=== PATIENT | female | born 1990 | race Caucasian/White ===

== ENCOUNTER 2020-11-24 13:29 | Emergency (ER) | payer OTHER ==
[2020-11-24 13:41] VITALS: BP 118/89; PULSE 98; TEMP 98.3
[2020-11-24] MEDS ORDERED: IBUPROFEN 400 MG TABLET (FP) PO ONE (13:53)
[2020-11-24] MEDS ORDERED: ACETAMINOPHEN 500 MG TABLET (FP) PO ONE (14:04)
[2020-11-24] MEDS ORDERED: ACETAMINOPHEN 500 MG TABLET (FP) ONE (14:13)
== END 2020-11-24 15:59 | disposition home or self-care (01) ==
LOC: JER 13:29
PROC: 2W3QX1Z Immobilization of Right Lower Leg using Splint (ICD-10-PCS; principal; 2020-11-24)
DX: S82.891A Other fracture of right lower leg, initial encounter for closed fracture (principal)
CPT/HCPCS: 73610-TC-RT-FY; 73630-TC-RT-FY; 99283-25